=== PATIENT | male | born 2000 | race Caucasian/White ===

== ENCOUNTER 2025-04-17 20:39 | Inpatient (IN) | payer OTHER ==
[~2025-04-17] VITALS: Ht 167.6 cm; Wt 87.2 kg
[2025-04-17 21:32] LABS: VENOUS BASE EXCESS 1.4 (-2.0-2.0); VENOUS HCO3 27.5 MMOL/L (23.0-27.0); VENOUS O2 SATURATION 67.9 % (60.0-80.0); VENOUS PARTIAL PRESSURE CO2 47.7 mmHg (38.0-50.0); VENOUS PARTIAL PRESSURE O2 32.3 mmHg (30.0-50.0); VENOUS PH 7.378 UNITS (7.330-7.430); VENOUS STANDARD HCO3 24.8 MMOL/L; VENOUS TOTAL CO2 28.9 MMOL/L (24.0-28.0)
[2025-04-17] MEDS: KETOROLAC 30 MG/ML 1 ML VIAL IV ONE (21:37)
[2025-04-17 21:40] LABS: BASO # 0.0 10^3/uL (0.0-0.2); BASO % 0.1 % (0.0-1.0); EOS # 0.1 10^3/uL (0.0-0.5); EOS % 0.9 % (0.0-3.0); LYMPH # 0.8 10^3/uL (1.5-5.0); LYMPH % 5.5 % (24.0-44.0); MONO # 1.3 10^3/uL (0.0-0.8); MONO % 9.0 % (2.0-8.0); NEUTROPHILS # 11.8 10^3/uL (1.5-8.5); NEUTROPHILS % 84.2 % (36.0-66.0); PLATELET COUNT, AUTOMATED 221 10^3/uL (150-450)
[2025-04-17 22:03] LABS: ALT/SGPT 44 U/L (7.0-40); AST/SGOT 34 U/L (<34); C REACTIVE PROTEIN QUANTITATIV 5.57 MG/DL (<1.0); CALCIUM LEVEL 9.0 MG/DL (8.5-10.1); CARBON DIOXIDE LEVEL 28 MMOL/L (20-31); CHLORIDE LEVEL 101 MMOL/L (98-107); CREATININE FOR GFR 1.04 MG/DL (0.70-1.30); GLOMERULAR FILTRATION RATE > 90.0 (>60); INR 1.04; POTASSIUM SERUM 4.2 MMOL/L (3.5-5.1); SODIUM LEVEL 139 MMOL/L (136-145)
[2025-04-17] MEDS ORDERED: VANCOMYCIN HCL 1,000 MG, VIAL MATE ADAPTER 1 EACH in NS 250 ML IV ONE (23:10)
[2025-04-17] MEDS: PIPERACILLIN/TAZOBACTAM SOD 4.5 GM in DEXTROSE 5% (D5W) ADV/MINI-BAG 50 ML IV ONE (23:23)
[2025-04-17] MEDS ORDERED: IBUP200T46 PO (23:40)
[2025-04-17] MEDS ORDERED: HOME MED LIST COMPLETE! XX SCH (23:40)
[2025-04-18] VITALS (12 sets, daily range): BP systolic 90–125; BP diastolic 45–61; TEMP 98.7–103.3; O2SAT 94–100
[2025-04-18] MEDS: VANCOMYCIN HCL 1,750 MG, VIAL MATE ADAPTER 1 EACH in NS 500 ML IV ONE (00:02)
[2025-04-18] MEDS: ACETAMINOPHEN 500 MG TAB PO ONE (01:08)
[2025-04-18] MEDS: ceFAZolin SODIUM 2 GM in DEXTROSE 5% (D5W) ADV/MINI-BAG 50 ML IV SCH (04:32)
[2025-04-18] MEDS: diphenhydrAMINE 50 MG/ML VIAL IV PRN (04:50)
[2025-04-18] MEDS: ONDANSETRON 4MG/2ML VIAL IV PRN (06:03)
[2025-04-18] MEDS: ACETAMINOPHEN 325 MG TAB PO PRN (06:35)
[2025-04-18 08:17] LABS: BASO # 0.0 10^3/uL (0.0-0.2); BASO % 0.2 % (0.0-1.0); EOS # 0.2 10^3/uL (0.0-0.5); EOS % 1.0 % (0.0-3.0); LYMPH # 0.7 10^3/uL (1.5-5.0); LYMPH % 3.1 % (24.0-44.0); MONO # 1.1 10^3/uL (0.0-0.8); MONO % 5.4 % (2.0-8.0); NEUTROPHILS # 18.9 10^3/uL (1.5-8.5); NEUTROPHILS % 89.5 % (36.0-66.0); PLATELET COUNT, AUTOMATED 198 10^3/uL (150-450)
[2025-04-18] MEDS: LR 500 ML IV ONE (09:25)
[2025-04-18] MEDS: LR 1,000 ML IV SCH (10:04)
[2025-04-18] MEDS: DOXYCYCLINE HYCLATE 100 MG TABLET PO SCH (14:01)
[2025-04-18] MEDS: MICONAZOLE TOPICAL 2% CREAM 15 GM TOP SCH (16:12)
[2025-04-19 03:52] VITALS: BP 127/58; TEMP 98.3; O2SAT 99
[2025-04-19 06:03] LABS: BASO # 0.0 10^3/uL (0.0-0.2); BASO % 0.1 % (0.0-1.0); EOS # 0.2 10^3/uL (0.0-0.5); EOS % 1.8 % (0.0-3.0); LYMPH # 1.2 10^3/uL (1.5-5.0); LYMPH % 10.3 % (24.0-44.0); MONO # 1.1 10^3/uL (0.0-0.8); MONO % 9.8 % (2.0-8.0); NEUTROPHILS # 8.7 10^3/uL (1.5-8.5); NEUTROPHILS % 77.7 % (36.0-66.0); PLATELET COUNT, AUTOMATED 167 10^3/uL (150-450)
[2025-04-19 06:21] LABS: CALCIUM LEVEL 8.5 MG/DL (8.5-10.1); CARBON DIOXIDE LEVEL 24.0 MMOL/L (20-31); CHLORIDE LEVEL 105.0 MMOL/L (98-107); CREATININE FOR GFR 3.37 MG/DL (0.70-1.30); GLOMERULAR FILTRATION RATE 25.2 (>60); POTASSIUM SERUM 4.0 MMOL/L (3.5-5.1); SODIUM LEVEL 142.0 MMOL/L (136-145)
[2025-04-19 12:00] VITALS: BP 122/65; TEMP 101.6; O2SAT 97
[2025-04-19 13:09] VITALS: TEMP 98.5
[2025-04-19 20:16] VITALS: BP 135/80; TEMP 98.7; O2SAT 96
[2025-04-19 20:46] LABS: CALCIUM LEVEL 8.2 MG/DL (8.5-10.1); CARBON DIOXIDE LEVEL 27.0 MMOL/L (20-31); CHLORIDE LEVEL 106.0 MMOL/L (98-107); CPK CREATINE PHOSPHOKINASE 174.0 U/L (46-171); CREATININE FOR GFR 2.55 MG/DL (0.70-1.30); GLOMERULAR FILTRATION RATE 35.3 (>60); POTASSIUM SERUM 3.9 MMOL/L (3.5-5.1); SODIUM LEVEL 143.0 MMOL/L (136-145)
[2025-04-19] MEDS ORDERED: LINEZOLID 600 MG TABLET PO SCH (21:00)
[2025-04-19 21:31] LABS: KETONE, URINE AUTO RFX NEGATIVE (NEGATIVE); LEUKOCYTE ESTERASE UR AUTO RFX NEGATIVE (NEGATIVE); MUCUS, URINE RFX SMALL (NEGATIVE); NITRITE, URINE AUTO RFX NEGATIVE (NEGATIVE); RBC, URINE AUTO RFX 3 /HPF (0-3); SQUAM EPITHELIAL CELL UR AURFX 0 /HPF (0-6); WBC, URINE AUTO RFX 2 /HPF (0-3)
[2025-04-19 22:02] LABS: SODIUM,RANDOM URINE 95.0 MMOL/L
[2025-04-20 04:22] VITALS: BP 129/69; TEMP 97.3; O2SAT 98
[2025-04-20 06:00] LABS: BASO # 0.0 10^3/uL (0.0-0.2); BASO % 0.1 % (0.0-1.0); EOS # 0.3 10^3/uL (0.0-0.5); EOS % 4.1 % (0.0-3.0); LYMPH # 1.9 10^3/uL (1.5-5.0); LYMPH % 26.1 % (24.0-44.0); MONO # 1.1 10^3/uL (0.0-0.8); MONO % 15.9 % (2.0-8.0); NEUTROPHILS # 3.8 10^3/uL (1.5-8.5); NEUTROPHILS % 53.5 % (36.0-66.0); PLATELET COUNT, AUTOMATED 193 10^3/uL (150-450)
[2025-04-20 06:23] LABS: C REACTIVE PROTEIN QUANTITATIV 9.23 MG/DL (<1.0)
[2025-04-20 06:25] LABS: CPK CREATINE PHOSPHOKINASE 183 U/L (46-171)
[2025-04-20 06:28] LABS: ALT/SGPT < 9 U/L (7.0-40); AST/SGOT 17 U/L (<34); CALCIUM LEVEL 8.4 MG/DL (8.5-10.1); CARBON DIOXIDE LEVEL 26 MMOL/L (20-31); CHLORIDE LEVEL 105 MMOL/L (98-107); CREATININE FOR GFR 2.12 MG/DL (0.70-1.30); GLOMERULAR FILTRATION RATE 44.0 (>60); POTASSIUM SERUM 3.7 MMOL/L (3.5-5.1); SODIUM LEVEL 144 MMOL/L (136-145)
[2025-04-20 12:00] VITALS: BP 115/56; TEMP 97.9; O2SAT 95
[2025-04-20] MEDS: LR 1,000 ML IV SCH (12:19)
[2025-04-20 20:00] VITALS: BP 123/80; TEMP 98.6; O2SAT 96
[2025-04-20 22:37] LABS: UREA NITROGEN 24 HOUR URINE 10193 G/24HR (12-20)
[2025-04-21 04:00] VITALS: BP 135/72; TEMP 99.9; O2SAT 97
[2025-04-21 05:54] LABS: BASO # 0.0 10^3/uL (0.0-0.2); BASO % 0.2 % (0.0-1.0); EOS # 0.3 10^3/uL (0.0-0.5); EOS % 4.1 % (0.0-3.0); LYMPH # 1.9 10^3/uL (1.5-5.0); LYMPH % 30.7 % (24.0-44.0); MONO # 1.0 10^3/uL (0.0-0.8); MONO % 15.7 % (2.0-8.0); NEUTROPHILS # 3.0 10^3/uL (1.5-8.5); NEUTROPHILS % 49.1 % (36.0-66.0); PLATELET COUNT, AUTOMATED 183 10^3/uL (150-450)
[2025-04-21 06:18] LABS: CALCIUM LEVEL 8.2 MG/DL (8.5-10.1); CARBON DIOXIDE LEVEL 30.0 MMOL/L (20-31); CHLORIDE LEVEL 101.0 MMOL/L (98-107); CREATININE FOR GFR 1.4 MG/DL (0.70-1.30); GLOMERULAR FILTRATION RATE 72.4 (>60); POTASSIUM SERUM 3.9 MMOL/L (3.5-5.1); SODIUM LEVEL 141.0 MMOL/L (136-145)
[2025-04-21 12:00] VITALS: BP 135/68; TEMP 99.4; O2SAT 95
[2025-04-21] MEDS ORDERED: DOXY100C3 PO (16:28)
== END 2025-04-21 17:22 | disposition home or self-care (01) | DRG 603 ==
LOC: M ED 20:39 → M ED INP 20:40 → M MS4PR 04-18 02:53 → M PM&R 04-18 10:30 → M MS4PR 04-18 10:32 → OBSVTOIN 04-19 09:45 → M PM&R 04-21 10:16 → M MS4PR 04-21 10:19
PROVIDERS: ADMIT Student in an Organized Health Care Education/Training Program; ATTEND Student in an Organized Health Care Education/Training Program
DX: L03.115 Cellulitis of right lower limb (principal); N17.9 Acute kidney failure, unspecified; E86.0 Dehydration; R00.0 Tachycardia, unspecified; T39.395A Adverse effect of other nonsteroidal anti-inflammatory drugs [NSAID], initial encounter; T36.8X5A Adverse effect of other systemic antibiotics, initial encounter; E83.51 Hypocalcemia